=== PATIENT | female | born 2000 | race Caucasian/White ===

== ENCOUNTER 2020-01-09 00:10 | Emergency (ER) | payer MEDICAID ==
[2020-01-09] MEDS ORDERED: Ondansetron 4 MG Tab.DIS PO ONE (00:11)
--- NOTE | 2020-01-09 00:44 | EDM.PDOC ---
ED HPI GENERAL MEDICAL PROBLEM - General Chief Complaint: Abdominal Pain Stated Complaint: ABDOMINAL PAIN Time Seen by Provider: 01/09/20 00:40 Source of Information: Reports: Patient History Limitations: Reports: No Limitations - History of Present Illness INITIAL COMMENTS - FREE TEXT/NARRATIVE: 19-year-old female who reports onset of upper abdominal abdominal pain at 10 AM today and the pain has been intermittent since that time and has been worsening with time. She developed vomiting and diarrhea shortly after this and had gone to work this morning but left at 5 PM because of her abdominal pain and vomiting and diarrhea. She has tried to sleep but the abdominal pain has continued and has been somewhat cyclic in nature with pain being 9/10 at its worst and is a sharp and cramping type pain and currently is a 6/10. She reports that she was awakened about every hour with vomiting and diarrhea and reports that she has had vomiting 10+ and diarrhea times about 10 today. She has had no blood in her stool or her emesis. She has had recurrent episodes of pain similar to this in the past and reports that she was seen in the emergency department approximately one month ago with similar type symptoms and had a CT scan of her abdomen and pelvis and is supposed to be having follow-up related to this. She has had no fevers but has had chills associated with this. No syncope or presyncope. She does report that her chest and upper back feels sore with the vomiting. She has had no dysuria or hematuria. There are no other associated signs or symptoms. There are no other modifying factors. 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 Surgical history as detailed below.) - Past Surgical History HEENT Surgical History: Reports: Oral Surgery (Ford teeth extraction) Social & Family History - Tobacco Use Smoking Status *Q: Former Smoker (Nonsmoker for the past 3 months.) - Caffeine Use Caffeine Use: Reports: Soda, Tea - Recreational Drug Use Recreational Drug Use: Yes Drug Use in Last 12 Months: Yes Recreational Drug Type: Reports: Marijuana/Hashish (Reports has been smoking marijuana since she was 12 years of age. Reports that she smokes marijuana about every other day) ED ROS GENERAL - Review of Systems Review Of Systems: See Below Constitutional: Reports: Chills HEENT: Reports: Other (Dry mouth and somewhat sore throat after vomiting) Respiratory: Reports: No Symptoms Cardiovascular: Reports: Chest Pain (Chest soreness with vomiting) GI/Abdominal: Reports: Abdominal Pain, Diarrhea, Nausea, Vomiting : Reports: No Symptoms Musculoskeletal: Reports: Muscle Pain, Other (Upper back soreness with vomiting) Skin: Reports: No Symptoms Neurological: Reports: No Symptoms Hematologic/Lymphatic: Reports: No Symptoms Immunologic: Reports: No Symptoms ED EXAM, GI/ABD - Physical Exam Exam: See Below Exam Limited By: No Limitations General Appearance: Alert, WD/WN, Moderate Distress (Appears in some discomfort) Eyes: Bilateral: Normal Appearance, EOMI Ears: Normal External Exam, Hearing Grossly Normal Nose: Normal Inspection, Normal Mucosa, No Blood Throat/Mouth: Normal Inspection, Normal Oropharynx, Normal Voice, No Airway Compromise Head: Atraumatic, Normocephalic Neck: Normal Inspection, Supple, Non-Tender, Full Range of Motion Respiratory/Chest: No Respiratory Distress, Lungs Clear, Normal Breath Sounds, No Accessory Muscle Use, Chest Non-Tender Cardiovascular: Normal Peripheral Pulses, Regular Rate, Rhythm, No Murmur GI/Abdominal Exam: Normal Bowel Sounds, Soft, No Mass, Tender (Diffusely tender but more so in her epigastrium.). No: Rigid, Rebound Back Exam: Normal Inspection, Full Range of Motion Extremities: Normal Inspection, Normal Range of Motion, Non-Tender, No Pedal Edema, Normal Capillary Refill Neurological: Alert, Oriented, CN II-XII Intact, Normal Cognition, No Motor/ Sensory Deficits Skin Exam: Warm, Dry, Intact, Normal Color, No Rash Course - Vital Signs Last Recorded V/S: Last Vital Signs Temp 36.8 C 01/09/20 00:22 Pulse 92 01/09/20 01:41 Resp 14 01/09/20 01:41 BP 129/74 01/09/20 01:41 Pulse Ox 99 01/09/20 01:41 - Orders/Labs/Meds Orders: Active Orders 24 hr Category Date Time Status Magnesium Sulfate/Water [Magnesium Sulfate in Water Med 01/09/20 01:41 Active Premix] 2 gm Premix Bag 1 bag IV ONETIME Sodium Chloride 0.9% [Normal Saline] 1,000 ml Med 01/09/20 00:56 Active IV .BOLUS Sodium Chloride 0.9% [Normal Saline] 1,000 ml Med 01/09/20 01:00 Active IV ASDIRECTED Sodium Chloride 0.9% [Saline Flush] Med 01/09/20 00:55 Active 10 ml FLUSH ASDIRECTED PRN Peripheral IV Insertion Adult [OM.PC] Routine Oth 01/09/20 00:55 Ordered Medication Orders Sodium Chloride (Normal Saline) 1,000 mls @ 999 mls/hr IV .BOLUS ONE Stop: 01/09/20 01:56 Last Admin: 01/09/20 01:00 Dose: 999 mls/hr Sodium Chloride (Normal Saline) 1,000 mls @ 150 mls/hr IV ASDIRECTED ALEXANDER Magnesium Sulfate 2 gm/ Premix 50 mls @ 150 mls/hr IV ONETIME ONE Stop: 01/09/20 02:00 Last Admin: 01/09/20 01:44 Dose: 150 mls/hr Sodium Chloride (Saline Flush) 10 ml FLUSH ASDIRECTED PRN PRN Reason: Keep Vein Open Last Admin: 01/09/20 01:10 Dose: 10 ml Labs: Laboratory Tests 01/09/20 01/09/20 01/09/20 Range/Units 00:45 00:45 01:15 WBC 12.3 H (4.5-12.0) X10-3/uL RBC 4.83 (3.23-5.20) x10(6)uL Hgb 14.1 (11.5-15.5) g/dL Hct 42.3 (30.0-51.3) % MCV 87.7 (80-96) fL MCH 29.1 (27.7-33.6) pg MCHC 33.2 (32.2-35.4) g/dL RDW 12.0 (11.5-15.5) % Plt Count 339 (125-369) X10(3)uL MPV 7.9 (7.4-10.4) fL Add Manual Diff Yes Neutrophils % (Manual) 81 (46-82) % Band Neutrophils % 4 (0-6) % Lymphocytes % (Manual) 10 L (13-37) % Monocytes % (Manual) 3 L (4-12) % Eosinophils % (Manual) 2 (0-5) % Sodium (135-145) mmol/L Potassium (3.5-5.3) mmol/L Chloride (100-110) mmol/L Carbon Dioxide (21-32) mmol/L BUN (7-18) mg/dL Creatinine (0.55-1.02) mg/dL Est Cr Clr Drug Dosing mL/min Estimated GFR (MDRD) (>60) BUN/Creatinine Ratio (9-20) Glucose (80-116) mg/dL Calcium (8.2-10.1) mg/dL Magnesium (1.8-2.5) mg/dL Total Bilirubin (0.1-1.2) mg/dL AST (5-25) IU/L ALT (12-36) U/L Alkaline Phosphatase (56-112) IU/L C-Reactive Protein (0.5-0.9) mg/dL Total Protein (6.0-8.0) g/dL Albumin (3.2-4.5) g/dL Globulin g/dL Albumin/Globulin Ratio Lipase (73-393) U/L Urine Color Yellow (YELLOW) Urine Appearance Slightly cloudy (CLEAR) Urine pH 5.0 (5.0-6.5) Ur Specific [place] 1.025 (1.010-1.025) Urine Protein Negative (NEGATIVE) mg/dL Urine Glucose (UA) Normal (NORMAL) mg/dL Urine Ketones 15 H (NEGATIVE) mg/dL Urine Occult Blood Negative (NEGATIVE) Urine Nitrite Negative (NEGATIVE) Urine Bilirubin Negative (NEGATIVE) Urine Urobilinogen Normal (NEGATIVE) mg/dL Ur Leukocyte Esterase Negative (NEGATIVE) Urine RBC 0-5 (0-5) Urine WBC 0-5 (0-5) Ur Squamous Epith Cells Few H (NS,R,O) Urine Bacteria Few H (NS) Urine HCG, Qual Negative (NEGATIVE) 01/09/20 01/09/20 01/09/20 Range/Units 01:15 01:15 01:15 WBC (4.5-12.0) X10-3/uL RBC (3.23-5.20) x10(6)uL Hgb (11.5-15.5) g/dL Hct (30.0-51.3) % MCV (80-96) fL MCH (27.7-33.6) pg MCHC (32.2-35.4) g/dL RDW (11.5-15.5) % Plt Count (125-369) X10(3)uL MPV (7.4-10.4) fL Add Manual Diff Neutrophils % (Manual) (46-82) % Band Neutrophils % (0-6) % Lymphocytes % (Manual) (13-37) % Monocytes % (Manual) (4-12) % Eosinophils % (Manual) (0-5) % Sodium 146 H (135-145) mmol/L Potassium 3.7 (3.5-5.3) mmol/L Chloride 109 (100-110) mmol/L Carbon Dioxide 26 (21-32) mmol/L BUN 15 (7-18) mg/dL Creatinine 0.7 (0.55-1.02) mg/dL Est Cr Clr Drug Dosing 102.24 mL/min Estimated GFR (MDRD) > 60 (>60) BUN/Creatinine Ratio 21.4 H (9-20) Glucose 108 (80-116) mg/dL Calcium 8.4 (8.2-10.1) mg/dL Magnesium 1.4 L (1.8-2.5) mg/dL Total Bilirubin 0.6 (0.1-1.2) mg/dL AST 17 (5-25) IU/L ALT 24 (12-36) U/L Alkaline Phosphatase 67 (56-112) IU/L C-Reactive Protein 1.2 H (0.5-0.9) mg/dL Total Protein 7.4 (6.0-8.0) g/dL Albumin 3.7 (3.2-4.5) g/dL Globulin 3.7 g/dL Albumin/Globulin Ratio 1.0 Lipase 413 H (73-393) U/L Urine Color (YELLOW) Urine Appearance (CLEAR) Urine pH (5.0-6.5) Ur Specific [place] (1.010-1.025) Urine Protein (NEGATIVE) mg/dL Urine Glucose (UA) (NORMAL) mg/dL Urine Ketones (NEGATIVE) mg/dL Urine Occult Blood (NEGATIVE) Urine Nitrite (NEGATIVE) Urine Bilirubin (NEGATIVE) Urine Urobilinogen (NEGATIVE) mg/dL Ur Leukocyte Esterase (NEGATIVE) Urine RBC (0-5) Urine WBC (0-5) Ur Squamous Epith Cells (NS,R,O) Urine Bacteria (NS) Urine HCG, Qual (NEGATIVE) Meds: Medications Generic Name Dose Route Start Last Admin Trade Name Freq PRN Reason Stop Dose Admin Sodium Chloride 1,000 mls @ 999 mls/hr 01/09/20 00:56 01/09/20 01:00 Normal Saline IV 01/09/20 01:56 999 mls/hr .BOLUS ONE Administration Sodium Chloride 1,000 mls @ 150 mls/hr 01/09/20 01:00 Normal Saline IV ASDIRECTED ALEXANDER Magnesium Sulfate 2 gm/ Premix 50 mls @ 150 mls/hr 01/09/20 01:41 01/09/20 01 :44 IV 01/09/20 02:00 150 mls/hr ONETIME ONE Administration Sodium Chloride 10 ml 01/09/20 00:55 01/09/20 01:10 Saline Flush FLUSH 10 ml ASDIRECTED PRN Administration Keep Vein Open Discontinued Medications Generic Name Dose Route Start Last Admin Trade Name Freq PRN Reason Stop Dose Admin Metoclopramide HCl 10 mg 01/09/20 00:57 01/09/20 01:05 Reglan IVPUSH 01/09/20 00:58 10 mg ONETIME ONE Administration - Re-Assessments/Exams Free Text/Narrative Re-Assessment/Exam: 01/09/20 01:50: Patient reports that she feels much improved. She still has some mild diffuse abdominal pain but it is much improved. She also reports that her nausea has resolved and she has had no further vomiting or diarrhea. Her lab tests were reassuring. She had a mild elevation in WBC and CRP. Her magnesium was somewhat low her abdominal exam is benign at present with really essentially no tenderness with palpation. Her bowel sounds remain normoactive. There is no guarding or rebound. I will give the patient supplemental magnesium and the patient tells me that after this she really just wanted to go home at that point and I will provide her with a take home pack of Zofran and she will be discharged after the IV magnesium has been given. Departure - Departure Time of Disposition: 02:30 Disposition: Home, Self-Care 01 Condition: Good (Improved) Clinical Impression: Vomiting and diarrhea, Recurrent abdominal pain, Hypomagnesemia - Discharge Information Instructions: Abdominal Pain, Adult, [id number], Nausea and Vomiting, Adult, [id number], Cannabinoid Hyperemesis Syndrome, Diarrhea, Adult, [id number] Referrals: Melisa Dotson NETWORK DESIGNER [Primary Care Provider] - Forms: ED Department Discharge, ED Return to Work/School Form Additional Instructions: Your blood tests and urine tests were reassuring. You did appear to be somewhat dehydrated after the vomiting and he did have a slightly low magnesium level. We helped to correct your dehydration with IV fluids and we also gave you supplemental magnesium. I am unsure why you or having the recurrent abdominal pain, vomiting and diarrhea but we discussed, I feel that you should strongly consider completely stopping marijuana usage as chronic use can lead to recurring abdominal pain, vomiting and diarrhea. Rest. Drink small amounts of fluids frequently and increase the amounts as tolerated and then begin to advance your diet as tolerated. Medication as prescribed for nausea or vomiting (Zofran 4 mg ODT). Follow-up with your primary doctor. Back to the emergency department for worsening abdominal pain, unrelenting vomiting, high fever or any other concerning sign or symptom. Sepsis Event Note - Evaluation Sepsis Screening Result: No Definite Risk - Focused Exam Vital Signs: Vital Signs Temp Pulse Resp BP Pulse Ox 01/09/20 01:41 92 14 129/74 99 01/09/20 00:22 36.8 C 104 H 18 133/77 99 Date Exam was Performed: 01/09/20 Time Exam was Performed: 01:55 - My Orders Last 24 Hours: My Active Orders 01/09/20 00:55 Sodium Chloride 0.9% [Saline Flush] 10 ml FLUSH ASDIRECTED PRN Peripheral IV Insertion Adult [OM.PC] Routine 01/09/20 00:56 Sodium Chloride 0.9% [Normal Saline] 1,000 ml IV .BOLUS 01/09/20 01:00 Sodium Chloride 0.9% [Normal Saline] 1,000 ml IV ASDIRECTED 01/09/20 01:41 Magnesium Sulfate/Water [Magnesium Sulfate in Water Premix] 2 gm Premix Bag 1 bag IV ONETIME - Assessment/Plan Last 24 Hours: My Active Orders 01/09/20 00:55 Sodium Chloride 0.9% [Saline Flush] 10 ml FLUSH ASDIRECTED PRN Peripheral IV Insertion Adult [OM.PC] Routine 01/09/20 00:56 Sodium Chloride 0.9% [Normal Saline] 1,000 ml IV .BOLUS 01/09/20 01:00 Sodium Chloride 0.9% [Normal Saline] 1,000 ml IV ASDIRECTED 01/09/20 01:41 Magnesium Sulfate/Water [Magnesium Sulfate in Water Premix] 2 gm Premix Bag 1 bag IV ONETIME
[2020-01-09] MEDS: Sodium Chloride 0.9% 1,000 ML IV ONE (01:00)
[2020-01-09] MEDS ORDERED: Sodium Chloride 0.9% 1,000 ML IV SCH (01:00)
[2020-01-09] MEDS: Metoclopramide 10 MG/2 ML SDV IVPUSH ONE (01:05)
[2020-01-09] MEDS: Sodium Chloride 0.9% 10 ML Syringe FLUSH PRN (01:10)
[2020-01-09] MEDS: Magnesium Sulfate/Water 2 GM in Premix Bag 1 BAG IV ONE (01:44)
== END 2020-01-09 02:30 | disposition home or self-care (01) ==
LOC: FB.ED 00:10
DX: R10.13 Epigastric pain (principal); E83.42 Hypomagnesemia; R19.7 Diarrhea, unspecified; Z87.891 Personal history of nicotine dependence
CPT/HCPCS: 36415; 80053; 81001; 81025; 83690; 83735; 85025; 86140; 96361; 96365; 96375; 99284-25; A9270-GY; J2765; J3475; J7030